=== PATIENT | male | born 1960 | race Caucasian/White ===

== ENCOUNTER → 2016-11-22 | Day surgery (SDC) | payer OTHER ==
[~2016-11-22] MED LIST: BUPIVACAINE/EPINEPHRINE 0.5% PF 30 ML VIAL ONE; LACTATED RINGER'S 1000 ML INJ 1,000 ML ONE; MIDAZOLAM HCL 2 MG/2 ML VIAL ONE; ONDANSETRON HCL 4 MG/2 ML VIAL IV PUSH ONE; PROPOFOL 200 MG/20 ML AMP IV ONE; ceFAZolin INJ 1,000 MG VIAL ONE
--- NOTE | 2016-11-23 18:30 | MP ---
cc: NEL PALACIO DATE OF SURGERY 11/22/2016 PREOPERATIVE DIAGNOSIS Left knee medial and lateral meniscus tear. POSTOPERATIVE DIAGNOSES Left knee medial and lateral meniscus tear. PROCEDURE Left knee arthroscopic partial medial and lateral meniscectomy. SURGEON Dr. Niurka Palacio ANESTHESIA General. ESTIMATED BLOOD LOSS Less than 10 mL. TOURNIQUET TIME Zero minutes. IDENTIFICATION The patient is a 56-year male who injured the left knee. He has had persistent pain in regards to his condition and failed conservative treatment. Clinical exam as well as MRI confirmed the above-named findings. The patient was counseled as to risks, benefits and alternatives to the above named proposed surgical procedure. He did wish to proceed with surgery. PROCEDURE IN DETAIL A written consent was obtained. The patient were identified by name, taken to the operating room, placed supine on the operating room table. General anesthesia was administered as well as 1 gram of IV Ancef. Left thigh carefully placed in well-padded leg kelsey. Left lower extremity prepped and draped using isopropyl alcohol, Hibiclens solution and DuraPrep solution. A standard medial and lateral parapatellar arthroscopic portal was established. The patellofemoral joint revealed mild grade 2 chondromalacia. The medial compartment revealed a large complex tear of the posterior horn of the medial meniscus. Arthroscopic biter followed by arthroscopic shaver was introduced in the medial compartment. The meniscal rim was probed and noted to be stable. There was evidence of slight grade 2 chondromalacia medial femoral condyle. The intercondylar notch revealed the anterior and posterior cruciate ligaments to be intact. The lateral compartment revealed a radial tear mid bilateral meniscus extending into the anterior and posterior horns. An arthroscopic shaver was introduced into the lateral compartment to perform a partial lateral meniscectomy. The meniscal rim was probed and noted to be stable. Minimal chondromalacia lateral compartment was noted. At the conclusion of surgical procedure, 30 mL of 0.5% Marcaine with epinephrine was injected into the knee joint. The arthroscopic portals were closed with 3-0 Prolene suture. Sterile dressing applied. The patient tolerated procedure well. No intraoperative complications noted. MD JOSÉ MIGUEL Campuzano/ /12:48 PM /6:17 PM
== END | disposition home or self-care (01) ==
LOC: ESDC 11:15
PROVIDERS: ATTEND Orthopaedic Surgery Sports Medicine
DX: S83.232A Complex tear of medial meniscus, current injury, left knee, initial encounter (principal); S83.282A Other tear of lateral meniscus, current injury, left knee, initial encounter
CPT/HCPCS: 01400; 29880; J0690; J2250; J2405; J3010; J7120